=== PATIENT | male | born 1985 | race Caucasian/White ===

== ENCOUNTER 2024-02-24 14:13 | Emergency (ER) | payer MEDICAID, OTHER ==
[~2024-02-24] VITALS: Ht 177.8 cm; Wt 50.0 kg
[2024-02-24 14:19] VITALS: O2SAT 98
[2024-02-24] MEDS: MORPHINE SULFATE 4 MG/ML INJ (FOR IV/IM USE) IM ONE (15:32)
[2024-02-24 16:45] VITALS: BP 111/74; PULSE 100; RESP 20; TEMP 37.11408; O2SAT 98
== END 2024-02-24 17:22 ==
LOC: ER 14:13
DX: F11.23 Opioid dependence with withdrawal (principal)
CPT/HCPCS: 99291; 96372; J2270